=== PATIENT | male | born 1960 ===

== ENCOUNTER 2017-07-11 09:36 | Emergency (ER) | payer OTHER ==
[2017-07-11 09:55] VITALS: O2SAT 100
[2017-07-11 10:26] LABS: BASO % 0.5 % (0.0-2.0); EOS % 0.9 % (0.0-4.0); HEMATOCRIT 40.4 % (35.0-51.0); LYMPH # 2.7 K/uL (1.0-4.3); LYMPH % 57.9 % (20.0-40.0); MEAN CELL VOLUME 90.2 fL (80.0-94.0); MEAN CORPUSCULAR HEMOGLOBIN 30.9 pg (27.0-31.0); MEAN CORPUSCULAR HGB CONC 34.3 g/dL (33.0-37.0); MONO # 0.3 K/uL (0.0-0.8); MONO % 5.8 % (0.0-10.0); NRBC % 0.1 % (0.0-2.0); RED CELL DISTRIBUTION WIDTH 13.9 % (11.5-14.5); WHITE BLOOD COUNT 4.7 K/uL (4.8-10.8)
[2017-07-11 10:37] LABS: CHLORIDE 100 mmol/L (98-107); POTASSIUM 4.1 mmol/L (3.6-5.2); SODIUM 140 mmol/L (132-148)
--- NOTE | 2017-07-11 10:38 | C.PDOC ---
History Of Present Illness 57 yr old male with PMh of schizophrenia, Alzheimer dementia, seizures and NIDDM , presents to the ER from a snf accompanied by caregiver for evaluation of non compliance of medication for the past 5 days. As per caregiver patient is refusing medication and appears to be hallucinating. Patient is also not compliant with snf rules. At the present time patient appears in no apparent distress. Denies suicidal or homocidal ideation or attempts, denies recent illness, fever, vision changes, chest pain, SOB, nausea, vomiting, abdominal pain, headache, weakness, numbness, SI or HI. At the time of evaluation, pt appears comfortable, not in any apparent distress. Time Seen by Provider: 07/11/17 09:47 Chief Complaint (Nursing): Psychiatric Evaluation History Per: Patient, Other (Caregiver) History/Exam Limitations: no limitations Onset/Duration Of Symptoms: Days Current Symptoms Are (Timing): Still Present Past Medical History Reviewed: Historical Data, Nursing Documentation, Vital Signs Vital Signs: Last Vital Signs Temp 97 F L 07/11/17 11:56 Pulse 100 H 07/11/17 11:56 Resp 20 07/11/17 11:56 BP 113/74 07/11/17 11:56 Pulse Ox 100 07/11/17 11:56 - Medical History PMH: Alzheimer's Disease, Anemia, Asthma, HTN, Hypercholesterolemia Family History: States: No Known Family Hx - Social History Hx Alcohol Use: Yes Hx Substance Use: No - Immunization History Hx Tetanus Toxoid Vaccination: No Hx Influenza Vaccination: No Hx Pneumococcal Vaccination: No Review Of Systems Except As Marked, All Systems Reviewed And Found Negative. Constitutional: Negative for: Fever Eyes: Negative for: Vision Change Cardiovascular: Negative for: Chest Pain Respiratory: Negative for: Shortness of Breath Gastrointestinal: Negative for: Nausea, Vomiting, Abdominal Pain Neurological: Negative for: Weakness, Numbness, Headache Psych: Negative for: Suicidal ideation Physical Exam - Physical Exam Appears: Non-toxic, No Acute Distress Skin: Warm, Dry, No Rash Head: Atraumatic, Normacephalic Eye(s): bilateral: Normal Inspection, PERRL, EOMI Oral Mucosa: Moist Chest: Symmetrical, No Tenderness Cardiovascular: Rhythm Regular, No Murmur Respiratory: Normal Breath Sounds, No Rales, No Rhonchi, No Wheezing Gastrointestinal/Abdominal: Normal Exam, Soft, No Tenderness, No Guarding, No Rebound Extremity: Normal ROM, No Swelling Neurological/Psych: Oriented x3, Normal Speech, Normal Motor ED Course And Treatment - Laboratory Results Result Diagrams: 07/11/17 10:22 07/11/17 10:22 Lab Interpretation: Normal O2 Sat by Pulse Oximetry: 100 (RA) Pulse Ox Interpretation: Normal Progress Note: On re-evaluation, pt remained cooperative, not in any apparent distress. Afebrile, hemodynamicalys table. Non-toxic. Blood work review and appears baseline, no acute abnormalities. Pt was seen by electronics worker per my request. Case was discussed with and psychiatricly cleared for further eval by neurologist. Case discussed with Nena and agrees with discharge with outpt f/u. Medical Decision Making Medical Decision Making: PLAN: * CBC * CMP * Drug Screen * Urinalysis Disposition Counseled Patient/Family Regarding: Diagnosis, Need For Followup - Disposition Referrals: Adam Lemus MD [Staff Provider] - Disposition: HOME/ ROUTINE Disposition Time: 11:33 Condition: STABLE Instructions: Schizophrenia (ED), Dementia (ED) Forms: [employer] (Mozambican) - Clinical Impression Clinical Impression: Schizophrenia, Dementia - PA / BIOCHEMIST / Resident Statement MD/DO has reviewed & agrees with the documentation as recorded. - Scribe Statement The provider has reviewed the documentation as recorded by the Scribe Dulce Warner All medical record entries made by the Scribe were at my direction and personally dictated by me. I have reviewed the chart and agree that the record accurately reflects my personal performance of the history, physical exam, medical decision making, and the department course for this patient. I have also personally directed, reviewed, and agree with the discharge instructions and disposition.
[2017-07-11 10:39] LABS: AST/SGOT 16 U/L (17-59); BILIRUBIN,TOTAL 0.5 mg/dL (0.2-1.3); CARBON DIOXIDE 25 mmol/L (22-30); GFR AFRICAN-AMERICAN > 60
[2017-07-11 10:40] LABS: ALB/GLOB RATIO 1.3 (1.0-2.1); ALKALINE PHOSPHATASE 51 U/L (38-126); ALT/SGPT 29 U/L (21-72); BLOOD UREA NITROGEN 19 mg/dL (9-20); CALCIUM 8.8 mg/dl (8.6-10.4); GLUCOSE,RANDOM 114 mg/dL (75-110); TOTAL PROTEIN 6.8 g/dL (6.3-8.3)
[2017-07-11 11:58] VITALS: BP 113/74; PULSE 100; RESP 20; TEMP 97
== END 2017-07-11 11:57 | disposition home or self-care (01) ==
LOC: C.ER 09:36
DX: F20.9 Schizophrenia, unspecified (principal); F03.90 Unspecified dementia, unspecified severity, without behavioral disturbance, psychotic disturbance, mood disturbance, and anxiety

== ENCOUNTER 2018-11-05 10:39 | Outpatient (CLI) | payer OTHER | END 2018-11-05 10:40 | disposition home or self-care (01) | LOC: C.RADH 10:39 ==